=== PATIENT | male | born 1995 | race Caucasian/White ===

== ENCOUNTER 2020-06-03 10:03 | Emergency (ER) | payer SELFPAY ==
[2020-06-03 10:07] VITALS: BP 126/77; PULSE 94; RESP 16; TEMP 36.3; O2SAT 98; BMI 25.6
--- NOTE | 2020-06-03 10:26 | XRR_ITS ---
PROCEDURE INFORMATION: Exam: XR Right Hand Exam date and time: 06/03/2020 10:41 AM Age: 24 years old Clinical indication: Pain and injury or trauma; Other: Hit a cabinet with fist; Blunt trauma (contusions or hematomas); Hand; Right; Injury date: 06/02/20; Additional info: Hand pain TECHNIQUE: Imaging protocol: XR Right hand. Views: 3 or more views. COMPARISON: No relevant prior studies available. FINDINGS: Bones/joints: Small ossific density adjacent to the base of the 5th metacarpal and the lateral aspect of the hamate of approximately 5 mm x 2 mm. . Likely a small fracture fragment. Consider CT. Donor site believed to be the hamate. Soft tissues: Normal. XR/XR hand RT min 3V* [id number] IMPRESSION: Small ossific density adjacent to the base of the 5th metacarpal and the lateral aspect of the hamate of approximately 5 mm x 2 mm. . Likely a small fracture fragment. Consider CT. Donor site believed to be the hamate. Correlate regarding tenderness in this region.
--- NOTE | 2020-06-03 10:26 | XRR_ITS ---
PROCEDURE INFORMATION: Exam: XR Right Wrist Exam date and time: 06/03/2020 10:41 AM Age: 24 years old Clinical indication: Pain and injury or trauma; Other: Hit cabinet with fist; Blunt trauma (contusions or hematomas); Wrist; Right; Injury date: 06/02/20; Additional info: Wrist pain TECHNIQUE: Imaging protocol: XR Right wrist. Views: 3 or more views. COMPARISON: No relevant prior studies available. FINDINGS: Bones/joints: Tiny ossific density at the base of the 5th metacarpal measuring approximately 4 5 mm x 2 mm believed to be a small fracture fragment from the hamate. Correlate regarding tenderness. Consider CT. Soft tissues: Normal. XR/XR wrist RT min 3V* [id number] IMPRESSION: Tiny ossific density at the base of the 5th metacarpal measuring approximately 4 5 mm x 2 mm believed to be a small fracture fragment from the hamate. Correlate regarding tenderness. Consider CT.
[2020-06-03 10:27] VITALS: BP 126/77; PULSE 77; PULSE 87; RESP 14; O2SAT 100
--- NOTE | 2020-06-03 10:48 | ED_ITS ---
HPI - Extremity Problem General: Chief complaint: Extremity Injury, Upper Stated complaint: pain in right hand Time Seen by Provider: 06/03/20 10:04 History of Present Illness: HPI Narrative: 24-year-old male patient presents to the emergency department with right hand pain. He reports punched a cabinet at approximately 2 AM on Wednesday, yesterday. Reports right hand pain with swelling, pain radiates to the right wrist, [id number], states attempted to go to work this morning with pain experienced in the right hand. MD Complaint: extremity pain Onset (ago): day(s) (1) Pain Consistency: constant Location: right and upper extremity Severity scale (1-10): 5 Quality: aching Radiation: proximal Relieving factors: movement Exacerbating factors: rest Associated symptoms: Reports no associated symptoms; Deny chest pain, fever(s) or rash Review of Systems General: Reports: 10 or more systems reviewed and unremarkable except in HPI and below Const: Denies: fever(s), chills or diaphoresis Eyes: Denies: blurry vision or eye redness ENMT: Denies: throat pain, dental pain or disequilibrium Card: Denies: chest pain, palpitations or irregular heart rhythm Resp: Denies: dyspnea, productive cough, non-productive cough or wheezing GI: Denies: abdominal pain, nausea or vomiting : Denies: dysuria Musc: Reports: extremity swelling (Right hand/right wrist) and joint stiffness (Right wrist); Denies: neck pain or back pain Skin/Breast: Denies: rash or pruritus Neuro: Denies: headache(s), weakness in extremities or behavioral changes Curtis/Lymph: Denies: easy bruising Physical Exam Const: COMMON NORMALS: no acute distress, patient oriented x3, healthy appearing and alert GENERAL APPEARANCE: cooperative, comfortable and well hydrated HENMT: COMMON NORMALS: normocephalic, Normal external nose present and moist o ral mucous membranes HEAD & SCALP: normocephalic NOSE: Normal external nose present Eye: COMMON NORMALS: Equal, round and reactive pupils present and EOMs intact bilaterally GENERAL EYE: appearance normal, both eyes and all related structures PUPIL: Yes Equal, round and reactive pupils present Neck/C-Spine: COMMON NORMALS: full ROM and no lymphadenopathy GENERAL: Yes normal visual inspection and Yes trachea midline CERVICAL SPINE: Yes cervical ROM normal Lymph: LYMPHATIC: no lymphadenopathy noted Chest: COMMONS NORMALS: normal inspection of the chest Resp: COMMON NORMALS: normal respiratory effort and clear to auscultation bilaterally AUSCULTATION: clear to auscultation bilaterally Cardio: COMMON NORMALS: regular rhythm, S1 normal heart sound present and S2 normal heart sound present RHYTHM: regular rhythm HEART SOUNDS: S1 normal heart sound present and S2 normal heart sound present GI: COMMON NORMALS: Soft to palpation and non-tender INSPECTION: Yes normal to inspection PALPATION: Yes Soft to palpation : COMMON NORMALS: Yes no CVA tenderness BLADDER/KIDNEY EXAM: Yes no CVA tenderness Back/Pelvis: COMMON NORMALS: no CVA tenderness and thoracic and lumbar spine normal to inspection Extremity: COMMON NORMALS: normal to inspection and capillary refill normal GENERAL: Yes normal exam except as noted RIGHT UPPER EXTREMITY: Yes hand & digits Right hand and digits: Yes inspection (Edema dorsally), Yes palpation (Pain palpated over the fourth and fifth MCPs), Yes ROM exam (Distally intact, full flexion-extension to all digits of the right hand, right wrist with pronation supination intact, tenderness to the right ulnar styloid.), Yes neurovascular exam (Distally intact) and Yes tendon exam (Intact) Neuro: COMMON NORMALS: patient oriented x3 and no focal motor deficits SENSORIUM/ORIENTATION: Yes alert Psych: COMMON NORMALS: mental status grossly normal, Normal thought process present and cooperative ACTIVITY/MOTOR BEHAVIOR: Yes appropriate eye contact THOUGHT PROCESS: Normal thought process present Skin: COMMON NORMALS: no rashes or lesions noted and turgor normal GENERAL SKIN EXAM: no rashes or lesions noted and turgor normal Course ED course: 24-year-old male patient presents to the emergency department with complaints of right hand pain status post closed hand injury, hit cabinet yesterday. Questionable fracture to the base of the fifth metacarpal in the lateral aspect of the hamate, likely fracture fragment, will refer patient to orthopedics for further evaluation. Case discussed with Dr. Fajardo, patient was placed in a ulnar gutter splint with work restriction. Results were discussed with the patient, questions were answered. Vital Signs: Vital signs: Vital Signs Temperature 97.3 F L 06/03/20 10:07 Pulse Rate 62 06/03/20 11:57 Respiratory Rate 12 06/03/20 11:57 Blood Pressure 127/70 06/03/20 11:57 Pulse Oximetry 98 06/03/20 11:57 MDM - Extremity (Nontraumatic) Imaging Data^: Xray Ortho: Radiologist's impression: [facility] [address] [place] [address] XRay Report Signed Patient: Srikanth Castanon Unit #: [id number] : 1995 Age/Sex: 24 / M ADM Date: 06/03/20 Loc: ER Room/Bed: Attending Dr: Ordering Provider/Ordering MD: Brigid Raya Date of Service: 06/03/20 Procedure(s): XR hand RT min 3V* [id number] Accession Number(s): [id number] Report Number: [id number] PROCEDURE INFORMATION: Exam: XR Right Hand Exam date and time: 06/03/2020 10:41 AM Age: 24 years old Clinical indication: Pain and injury or trauma; Other: Hit a cabinet with fist; Blunt trauma (contusions or hematomas); Hand; Right; Injury date: 06/02/20; Additional info: Hand pain TECHNIQUE: Imaging protocol: XR Right hand. Views: 3 or more views. COMPARISON: No relevant prior studies available. FINDINGS: Bones/joints: Small ossific density adjacent to the base of the 5th metacarpal and the lateral aspect of the hamate of approximately 5 mm x 2 mm. . Likely a small fracture fragment. Consider CT. Donor site believed to be the hamate. Soft tissues: Normal. XR/XR hand RT min 3V* [id number] IMPRESSION: Small ossific density adjacent to the base of the 5th metacarpal and the lateral aspect of the hamate of approximately 5 mm x 2 mm. . Likely a small fracture fragment. Consider CT. Donor site believed to be the hamate. Correlate regarding tenderness in this region. Dictated By: Ze Huitron MD Signed By: Ze Huitron MD Signed Date/Time: 06/03/20 1111 DD/ 1110 Discharge Plan Discharge Patient Disposition: Home Clinical Impression: Contusion of hand Qualifiers: Encounter type: initial encounter Laterality: right Qualified Code(s): S60.221A - Contusion of right hand, initial encounter Closed boxer's fracture Qualifiers: Encounter type: initial encounter Qualified Code(s): S62.339A - Displaced fracture of neck of unspecified metacarpal bone, initial encounter for closed fracture Condition: Stable Prescriptions: New naproxen 500 mg tablet 500 mg PO Q12H PRN (Reason: pain) Qty: 30 RF: 0 Discharge Orders: Discharge Order (Routine); Ordered 06/03/20 Ordered By: Brigid Raya Referrals: Erik Brar MD [Physician] - 06/06/20 1:30 pm Discharge Diet: Usual diet Discharge Activity: Limit activity as instructed Patient Instructions: Splint/Cast Care, Fractures - Boxer's, Wrist Injury (ED), Contusion in Adults (ED) Activity Restrictions/Additional Instructions: Right ulnar/gutter splint has been applied to the right hand due to suspected fracture appreciated on x-ray per radiologist. Referral to orthopedic surgery completed, you will receive a call with the time and date for follow-up. Take naproxen as needed for pain, this will help with swelling and pain, do not take with [id number] medication other than Tylenol. Follow-up with your primary care provider this week if right hand pain persist Keep the right hand elevated, apply cool compresses as needed for pain, never apply ice directly to the skin No work with right hand until cleared by engineering specialist technician. Turn to the emergency room if you develop worsening symptoms such as right arm redness swelling and increased pain. Stand Alone Forms: Work/School Release Discharge Date/Time: 06/03/20 11:58 Coding Level of Care Code ED Bow String Maker for Barrington Lazo Exam Comprehensive
[2020-06-03] MEDS: naproxen 500 mg Tablet PO (11:07)
--- NOTE | 2020-06-03 11:41 | DCPLANNER ---
restaurant culinary manager was asked to speak with patient about getting established with a primary care physician. restaurant culinary manager spoke with patient, he stated that he needed a primary care physician. restaurant culinary manager called [facility], spoke with Christy, a follow up appointment was scheduled for May at 1:[address] Brar. restaurant culinary manager informed patient of the scheduled appointment. restaurant culinary manager was also asked to schedule a follow up appointment for patient with ortho. restaurant culinary manager called the ortho clinic, spoke with Jalyn, gave clinic patients information. restaurant culinary manager was told that patients information would be printed and reviewed. Clinic will call patient with appointment information.
[2020-06-03 11:57] VITALS: BP 127/70; PULSE 62; RESP 12; O2SAT 98
--- NOTE | 2020-06-04 10:00 | DCPLANNER ---
Patient has a follow up appointment scheduled for May at 8:[address] Ramirez at ortho. Clinic will call patient with appointment information.
--- NOTE | 2020-06-14 18:07 | DCPLANNER ---
Patient had a follow up appointment scheduled for 06.04.20 with [facility] - patient did not attend appointment Patient had a follow up appointment scheduled for 06.13.20 with ortho - patient did attend appointment.
== END 2020-06-03 11:58 | disposition home or self-care (01) ==
PROVIDERS: Emergency Provider Nurse Practitioner Family; PCP Family Medicine
DX: S60.221A Contusion of right hand, initial encounter (principal); S62.336A Displaced fracture of neck of fifth metacarpal bone, right hand, initial encounter for closed fracture; W22.03XA Walked into furniture, initial encounter
CPT/HCPCS: 12345; 29125; 73110; 73130; 99281; 99283

== ENCOUNTER → 2020-06-13 08:19 | Outpatient (BNVA) | payer SELFPAY | PROVIDERS: PCP Family Medicine; Visit Provider Specialist | DX: S62.91XA Unspecified fracture of right hand, initial encounter for closed fracture (principal); X58.XXXA Exposure to other specified factors, initial encounter | CPT/HCPCS: 73130 ==

== ENCOUNTER 2020-06-13 10:09 | Outpatient (CLI) | payer SELFPAY | END 2020-06-13 10:10 | disposition home or self-care (01) | LOC: SPT 10:10 | PROVIDERS: PCP Family Medicine; Visit Provider Specialist | DX: Z46.89 Encounter for fitting and adjustment of other specified devices (principal); S62.143D Displaced fracture of body of hamate [unciform] bone, unspecified wrist, subsequent encounter for fracture with routine healing; X58.XXXD Exposure to other specified factors, subsequent encounter | CPT/HCPCS: 97760; L3984 ==

== ENCOUNTER 2021-09-09 12:10 | Outpatient (CLI) | payer SELFPAY ==
--- NOTE | 2021-09-09 12:30 | US_ITS ---
WS: [id number] Limited abdomen ultrasound. HISTORY: Possible hernia LEFT lower quadrant. In the region of the palpable abnormality is a lymph node measuring 1.4 x 1.0 x 1.3 cm. The normal sh ape of a lymph node is still present but there is asymmetric thickening of the cortex. Fatty hilum is normally seen. The normal vascularity to the central hilum is maintained. There are a few additional smaller lymph nodes. US/US abdomen limited [id number] IMPRESSION: 1. No hernia in the LEFT lower quadrant. 2. Several lymph nodes are identified in the LEFT lower quadrant. One of these LEFT nodes has asymmetric cortical thickening about the hilum size remains norm al and there is normal vascularity. This is probably a mildly reactive lymph no de. If lymph nodes increase in size or number CT should be performed.
== END 2021-09-09 12:11 | disposition home or self-care (01) ==
LOC: RAD 12:14
PROVIDERS: PCP Family Medicine Adult Medicine; Visit Provider Family Medicine Adult Medicine
DX: R19.09 Other intra-abdominal and pelvic swelling, mass and lump (principal); R59.0 Localized enlarged lymph nodes
CPT/HCPCS: 76705

== ENCOUNTER → 2022-02-10 13:32 | Outpatient (BNVA) | payer SELFPAY | PROVIDERS: PCP Family Medicine Adult Medicine; Visit Provider Family Medicine Adult Medicine | DX: Z00.00 Encounter for general adult medical examination without abnormal findings (principal); N45.1 Epididymitis | CPT/HCPCS: 80053; 84153; 85025 ==

== ENCOUNTER 2023-01-25 14:57 | Emergency (ER) | payer BC, SELFPAY ==
[2023-01-25 15:01] VITALS: BP 113/67; PULSE 62; RESP 14; TEMP 36.5; O2SAT 97; BMI 25.7
[2023-01-25 16:03] LABS: Basophils # 0.1 10^3/uL (0.0-0.1); Basophils % 0.7 %; Eosinophils # 0.3 10^3/uL (0.0-0.8); Hematocrit 46.1 % (42.0-52.0); Hemoglobin 15.5 g/dL (11.7-16.6); Lymphocytes % 35.1 %; Mean Corpuscular HGB Conc 33.6 g/dL (30.0-36.0); Mean Corpuscular Hemoglobin 30.6 pg (28.0-34.0); Mean Corpuscular Volume 91.1 fl (80-94); Mean Platelet Volume 9.3 fL (7.4-10.4); Monocytes # 0.7 10^3/uL (0.2-0.9); Monocytes % 7.6 %; Neutrophils # 4.62 10^3/uL (1.8-7.7); Neutrophils % 53.4 %; Nucleated Red Blood Cells % 0 %; Platelet Count 223 10^3/cmm (130-400); Red Blood Count 5.06 10^6/uL (4.1-5.3); Red Cell Distribution Width 12.2 % (12.1-15.1); White Blood Count 8.7 10^3/uL (4.0-10.0)
[2023-01-25 16:21] LABS: Alanine Aminotransferase 17 U/L (0-41); Albumin Level 4.5 g/dL (3.5-5.2); Alkaline Phosphatase 77 U/L (40-130); Anion Gap 14.1 (5-19); Aspartate Amino Transferase 19 U/L (0-40); Blood Urea Nitrogen 10 mg/dL (6-20); Calcium 9.2 mg/dL (8.5-10.5); Carbon Dioxide 25 mmol/L (22-29); Chloride 101 mmol/L (98-107); Globulin 2.7 g/dL (1.3-4.6); Glomerular Filtration Rate 159.3 mL/min (90-130); Glucose 80 mg/dL (65-115); Lipase 42 U/L (13-60); Osmolality Calculated 280 mOsm/kg (285-295); Potassium 4.1 mmol/L (3.5-5.1); Sodium 136 mmol/L (136-145); Total Bilirubin 0.2 mg/dL (0.15-1.2); Total Protein 7.2 g/dL (6.6-8.7)
--- NOTE | 2023-01-25 17:40 | CTR_ITS ---
PROCEDURE INFORMATION: Exam: CT Abdomen And Pelvis With Contrast Exam date and time: 01/25/2023 6:19 PM Age: 27 years old Clinical indication: Abdominal pain; Epigastric; Additional info: Epigastric pain TECHNIQUE: Imaging protocol: Computed tomography of the abdomen and pelvis with contrast. Axial, coronal and sagittal reformatted images were created and reviewed. Radiation optimization: All CT scans at this facility use at least one of these dose optimization techniques: automated exposure control; mA and/or kV adjustment per patient size (includes targeted exams where dose is matched to clinical indication); or iterative reconstruction. Contrast material: OMNI 350; Contrast volume: 100 ml; Contrast route: INTRAVENOUS (IV); REPORTING DATA: Count of CT and Cardiac NM exams in prior 12 months: This patient has received 0 known CTs and 0 known cardiac nuclear medicine studies in the 12 months prior to the current study. COMPARISON: US abdomen limited [id number] 09/09/2021 12:23 PM RADIATION DOSE METRICS: Total DLP (mGy-cm): 573 FINDINGS: Liver: Unremarkable. Gallbladder and bile ducts: No radiodense gallstones. No biliary ductal dilatation. Pancreas: Unremarkable. Spleen: Unremarkable. Adrenal glands: Normal. No mass. Kidneys and ureters: No mass. No radiodense calculi. No hydronephrosis. Stomach and bowel: Nondilated, fluid-filled loops of small bowel, some of which are mildly thickened. No obstruction. No pneumatosis. Appendix: Normal. Intraperitoneal space: No free fluid. No organized fluid collection. No free air. Vasculature: Unremarkable. No aneurysm. Lymph nodes: No pathologically enlarged lymph nodes. Urinary bladder: Unremarkable as visualized. Reproductive: Unremarkable. Bones/joints: No acute osseous abnormality. Soft tissues: Unremarkable. CT/CT abdomen pelvis w con* [id number] IMPRESSION: Nondilated, fluid-filled loops of small bowel, some of which are mildly thickened. No obstruction. Gastroenteritis could produce this appearance.
--- NOTE | 2023-01-25 17:44 | W.ED.ABDPA2 ---
HPI - Abdominal Pain General: Chief Complaint: Abdominal Pain Stated Complaint: abd pain Time Seen by Provider: 01/25/23 16:38 Source: patient Mode of arrival: ambulatory Limitations: no limitations History of Present Illness: This 27-year-old male presents to the ER for evaluation of epigastric pain that started few weeks ago. Pain is dull in nature and is always there . Sometimes, the pain gets worse. The patient is not exactly sure what causes it. He has no fever. Patient notes that over the last 2 weeks, he has been having diarrhea. However he had no bowel movement 2 days ago and yesterday. Today, he had a hard stool. He is clinically stable and does not appear to be in any acute distress. Associated Symptoms: Reports diarrhea (None for the last 2 days.); Denies chills and dysuria Review of Systems Const: Denies: chills, body aches or change in appetite Eyes: Denies: change in vision or eye discharge ENMT: Denies: throat pain, dental pain or nasal discharge Card: Denies: chest pain or lightheadedness GI: Reports: abdominal pain (Epigastric) and diarrhea (None for the last 2 days.) : Denies: dysuria Neuro: Denies: headache(s) or weakness in extremities Psych: Denies: depression Curtis/Lymph: Denies: easy bruising All/Imm: Denies: urticaria, tongue swelling or facial swelling PFSH ED PFSH: Medical History Chronic epididymitis Well adult on routine health check Social History Smoking and tobacco status: current every day smoker Physical Exam Const: COMMON NORMALS: no acute distress, patient oriented x3, no limitations and alert HENMT: COMMON NORMALS: normocephalic HEAD & SCALP: normocephalic Eye: COMMON NORMALS: EOMs intact bilaterally Neck/C-Spine: COMMON NORMALS: full ROM and supple Chest: COMMONS NORMALS: normal inspection of the chest Resp: COMMON NORMALS: normal respiratory effort, No retractions, No use of accessory muscles and clear to auscultation bilaterally AUSCULTATION: clear to auscultation bilaterally Cardio: COMMON NORMALS: regular rate, regular rhythm and No murmurs present (Cardio) RATE: regular rate RHYTHM: regular rhythm GI: COMMON NORMALS: Normal to inspection, nondistended, normoactive bowel sounds present PALPATION: Yes Tenderness to palpation present (GI) (Mild epigastric tenderness.) : COMMON NORMALS: Yes no CVA tenderness BLADDER/KIDNEY EXAM: Yes no CVA tenderness Back/Pelvis: COMMON NORMALS: no CVA tenderness and no thoracic nor lumbar tenderness Extremity: GENERAL: Yes normal exam except as noted Neuro: COMMON NORMALS: patient oriented x3 and no focal motor deficits SENSORIUM/ORIENTATION: Yes alert Psych: COMMON NORMALS: mental status grossly normal and cooperative Course Vital Signs: Vital signs: Vital Signs Temperature 97.7 F 01/25/23 15:01 Pulse Rate 56 L 01/25/23 20:02 Respiratory Rate 16 01/25/23 20:02 Blood Pressure 112/72 01/25/23 20:02 Pulse Oximetry 97 01/25/23 20:02 Oxygen Delivery Me thod Room Air 01/25/23 20:02 MDM - Abdominal Pain Medical Decision Making Medical decision making: History as above. On further questioning, patient admitted that he eats a lot of jalapenos. Labs are unremarkable with a normal lipase level. CT abdomen/pelvis is negative for gallstones. Though gastroenteritis was suggested, patient stopped having diarrhea 2 days ago. I believe that patient has gastritis. So, he was advised to stop eating spicy food, avoid acidic drinks and take the prescribed omeprazole. He will follow-up with his primary care physician for reevaluation. Reasons to return were discussed. Patient verbalized understanding and agrees with the plan. Lab Data 01/25/23 15:53 01/25/23 15:53 Labs/Radiology: Radiology Impressions Abdomen/Pelvis CT 01/25/23 17:40 IMPRESSION: Nondilated, fluid-filled loops of small bowel, some of which are mildly thickened. No obstruction. Gastroenteritis could produce this appearance. Laboratory Results WBC 8.7 10^3/uL (4.0-10.0) 01/25/23 15:53 RBC 5.06 10^6/uL (4.1-5.3) 01/25/23 15:53 Hgb 15.5 g/dL (11.7-16.6) 01/25/23 15:53 Hct 46.1 % (42.0-52.0) 01/25/23 15:53 MCV 91.1 fl (80-94) 01/25/23 15:53 MCH 30.6 pg (28.0-34.0) 01/25/23 15:53 MCHC 33.6 g/dL (30.0-36.0) 01/25/23 15:53 RDW 12.2 % (12.1-15.1) 01/25/23 15:53 Plt Count 223 10^3/cmm (130-400) 01/25/23 15:53 MPV 9.3 fL (7.4-10.4) 01/25/23 15:53 Neut % (Auto) 53.4 % 01/25/23 15:53 Lymph % (Auto) 35.1 % 01/25/23 15:53 Sherman % (Auto) 7.6 % 01/25/23 15:53 Eos % (Auto) 3.0 % 01/25/23 15:53 Baso % (Auto) 0.7 % 01/25/23 15:53 Neut # (Auto) 4.62 10^3/uL (1.8-7.7) 01/25/23 15:53 Lymph # (Auto) 3.0 10^3/uL (0.8-4.8) 01/25/23 15:53 Sherman # (Auto) 0.7 10^3/uL (0.2-0.9) 01/25/23 15:53 Eos # (Auto) 0.3 10^3/uL (0.0-0.8) 01/25/23 15:53 Baso # (Auto) 0.1 10^3/uL (0.0-0.1) 01/25/23 15:53 Nucleated RBC % (auto) 0 % 01/25/23 15:53 Nucleated RBCs # 0.0 /100WBC 01/25/23 15:53 Sodium 136 mmol/L (136-145) 01/25/23 15:53 Potassium 4.1 mmol/L (3.5-5.1) 01/25/23 15:53 Chloride 101 mmol/L (98-107) 01/25/23 15:53 Carbon Dioxide 25 mmol/L (22-29) 01/25/23 15:53 Anion Gap 14.1 (5-19) 01/25/23 15:53 BUN 10 mg/dL (6-20) 01/25/23 15:53 Creatinine 0.6 mg/dL (0.7-1.2) L 01/25/23 15:53 GFR Calculation 159.3 mL/min (90-130) H 01/25/23 15:53 Glucose 80 mg/dL (65-115) 01/25/23 15:53 Calculated Osmolality 280 mOsm/kg (285-295) L 01/25/23 15:53 Calcium 9.2 mg/dL (8.5-10.5) 01/25/23 15:53 Total Bilirubin 0.2 mg/dL (0.15-1.2) 01/25/23 15:53 AST 19 U/L (0-40) 01/25/23 15:53 ALT 17 U/L (0-41) 01/25/23 15:53 Alkaline Phosphatase 77 U/L (40-130) 01/25/23 15:53 Total Protein 7.2 g/dL (6.6-8.7) 01/25/23 15:53 Albumin 4.5 g/dL (3.5-5.2) 01/25/23 15:53 Globulin 2.7 g/dL (1.3-4.6) 01/25/23 15:53 Lipase 42 U/L (13-60) 01/25/23 15:53 Urine Color Yellow (Yellow) 01/25/23 19:09 Urine Appearance Clear (CLEAR) 01/25/23 19:09 Urine pH 6.5 (5-7) 01/25/23 19:09 Ur Specific [place] 1.005 (1.005-1.030) 01/25/23 19:09 Urine Protein Neg (Negative) 01/25/23 19:09 Urine Glucose (UA) Norm (Normal) 01/25/23 19:09 Urine Ketones Negative (Negative) 01/25/23 19:09 Urine Blood Neg (Negative) 01/25/23 19:09 Urine Nitrate Negative (Negative) 01/25/23 19:09 Urine Bilirubin Neg (Negative) 01/25/23 19:09 Urine Urobilinogen Norm mg/dL (Negative) 01/25/23 19:09 Ur Leukocyte Esterase Negative (Negative) 01/25/23 19:09 Discharge Plan Discharge Patient Disposition: Home Clinical Impression: Gastritis Condition: Stable Prescriptions: New omeprazole 40 mg capsule,delayed release(DR/EC) 40 mg PO DAILY Qty: 30 0RF Discharge Orders: Discharge ED (Routine); Ordered 01/25/23 Ordered By: Kyler Magallanes Referrals: Erik Brar MD [Primary Care Provider] - Discharge Diet: Usual diet Discharge Activity: Resume usual activity Patient Instructions: Opioid Safety, Pain Management Activity Restrictions/Additional Instructions: Take omeprazole as prescribed. You may add Tylenol as needed for pain. Limit acidic drinks like orange juice, carbonated soda or very spicy food. Follow-up with your primary care physician within a week for reevaluation. Return with new or worsening symptoms. Coding Level of Care Code ED [place] [employer] Builder for Barrington Lazo
[2023-01-25] MEDS: iohexol 350 mg/mL 500 mL Btl (per mL) IV (18:27)
[2023-01-25 19:12] LABS: Add Urine Microscopic? NO; Charge for UA Resulting for Rev
[2023-01-25 19:15] LABS: Blood Urine Neg (Negative); Glucose Urine UA Norm (Normal); Ketones Urine Negative (Negative); Protein Urine Neg (Negative); Specific Gravity, Urine 1.005 (1.005-1.030); Urine Appearance Clear (CLEAR); Urine Color Yellow (Yellow); pH Urine 6.5 (5-7)
[2023-01-25 19:16] LABS: Bilirubin Urine Neg (Negative); Leukocyte Esterase Urine Negative (Negative); Nitrate Urine Negative (Negative); Urobilinogen Urine Norm (Negative)
[2023-01-25 20:02] VITALS: BP 112/72; PULSE 56; RESP 16; O2SAT 97
[2023-01-25] MEDS: pantoprazole DR 40 mg Tablet PO (21:20)
[2023-01-25] MEDS: lidocaine 2% viscous 15 ML, aluminum-mag hydrox-simethicon 30 ML, sucralfate oral liq 1 GM PO (21:23)
[2023-01-25 21:29] VITALS: BP 123/82; PULSE 62; RESP 16; O2SAT 100
== END 2023-01-25 21:31 | disposition home or self-care (01) ==
PROVIDERS: Physician Assistant; Emergency Provider Family Medicine; PCP Family Medicine Adult Medicine
DX: K29.70 Gastritis, unspecified, without bleeding (principal)
CPT/HCPCS: 36415; 74177; 80053; 81003; 83690; 85025; 99285; Q9967

== ENCOUNTER → 2023-11-16 15:42 | Outpatient (BNVA) | payer OTHER, SELFPAY | PROVIDERS: PCP Family Medicine Adult Medicine; Visit Provider Nurse Practitioner | DX: S62.667A Nondisplaced fracture of distal phalanx of left little finger, initial encounter for closed fracture (principal); X58.XXXA Exposure to other specified factors, initial encounter | CPT/HCPCS: 73130 ==

== ENCOUNTER → 2023-11-19 10:52 | Outpatient (BNVA) | payer OTHER, SELFPAY | PROVIDERS: PCP Family Medicine Adult Medicine; Referring Provider Nurse Practitioner; Visit Provider Student in an Organized Health Care Education/Training Program | DX: S62.637A Displaced fracture of distal phalanx of left little finger, initial encounter for closed fracture; S69.92XA Unspecified injury of left wrist, hand and finger(s), initial encounter; W23.0XXA Caught, crushed, jammed, or pinched between moving objects, initial encounter | CPT/HCPCS: 73130 ==